=== PATIENT | female | born 1990 | race African-American/Black ===

== ENCOUNTER 2024-07-12 05:09 | Emergency (ER) | payer MEDICAID ==
[~2024-07-12] VITALS: Ht 162.6 cm; Wt 91.6 kg
[2024-07-12 05:30] VITALS: BP 151/86; PULSE 67; RESP 18; O2SAT 99
[2024-07-12 05:55] LABS: Urine Bacteria None Seen /hpf (None Seen)
[2024-07-12 06:16] LABS: Urine Blood 1+ /uL (Negative); Urine Clarity Clear (Clear); Urine Color Yellow (Yellow); Urine Mucus FEW (None Seen); Urine Protein, UAD TRACE (Negative); Urine Specific Gravity 1.029 (1.001-1.035); Urine Squamous Epithelial Cell FEW /hpf (<5); Urine Urobilinogen 3 mg/dL (Negative); Urine WBC 4 /hpf (0 - 5); Urine pH 5.5 (5.0-9.0)
== END 2024-07-12 06:47 | disposition left against medical advice (07) ==
LOC: ER 05:09
DX: R10.13 Epigastric pain (principal); K59.00 Constipation, unspecified; Z53.21 Procedure and treatment not carried out due to patient leaving prior to being seen by health care provider
CPT/HCPCS: 81001; 81025